=== PATIENT | female | born 1985 | race Caucasian/White ===

== ENCOUNTER 2017-03-04 20:55 | Emergency (ER) | payer MEDICAID ==
[2017-03-04 22:23] VITALS: BP 100/87
== END 2017-03-04 22:23 | disposition home or self-care (01) ==
LOC: ED 20:55
DX: S91.331A Puncture wound without foreign body, right foot, initial encounter (principal); X58.XXXA Exposure to other specified factors, initial encounter; Y93.89 Activity, other specified; Y99.8 Other external cause status; Y92.89 Other specified places as the place of occurrence of the external cause
CPT/HCPCS: 90715

== ENCOUNTER 2017-07-31 20:05 | Emergency (ER) | payer MEDICAID ==
[2017-07-31 21:42] VITALS: BP 110/70
== END 2017-07-31 21:42 | disposition home or self-care (01) ==
LOC: ED 20:05
DX: S43.402A Unspecified sprain of left shoulder joint, initial encounter (principal); S30.0XXA Contusion of lower back and pelvis, initial encounter; M25.552 Pain in left hip; V43.52XA Car driver injured in collision with other type car in traffic accident, initial encounter; Y93.89 Activity, other specified; Y99.8 Other external cause status; Y92.481 Parking lot as the place of occurrence of the external cause
CPT/HCPCS: J1885

== ENCOUNTER 2019-03-27 11:43 | Emergency (ER) | payer MEDICAID ==
[~2019-03-27] VITALS: Ht 165.1 cm; Wt 75.3 kg
[2019-03-27 11:48] VITALS: BP 119/69; Ht 165.1 cm; Wt 75.3 kg
== END 2019-03-27 13:56 | disposition home or self-care (01) ==
LOC: ED 11:43
DX: S80.261A Insect bite (nonvenomous), right knee, initial encounter (principal); Z86.2 Personal history of diseases of the blood and blood-forming organs and certain disorders involving the immune mechanism; Z90.49 Acquired absence of other specified parts of digestive tract; W57.XXXA Bitten or stung by nonvenomous insect and other nonvenomous arthropods, initial encounter; Y93.89 Activity, other specified; Y92.89 Other specified places as the place of occurrence of the external cause; Y99.8 Other external cause status